=== PATIENT | female | born 1945 | race Caucasian/White ===

== ENCOUNTER → 2016-06-08 | Outpatient (CLI) | payer OTHER, BC ==
[~2016-06-08] MED LIST: APAP500; BENADRYL25 MG; CITRATE OF MAG296 ML PO; FLEXERIL PO; IBUPROFEN 400400 M1 PO; KEFLEX500 MG PO; PERCOCET 5-3251 EACH PO; PERCOCET 7.5-31 EACH PO; PHENERGAN 25 MG25 M1 PO; ULTRAM 50MG TAB50 MG PO; ZOFRAN ODT4 MG PO
== END ==
LOC: CAT 15:35
DX: M48.56XA Collapsed vertebra, not elsewhere classified, lumbar region, initial encounter for fracture (principal); I72.9 Aneurysm of unspecified site; M54.9 Dorsalgia, unspecified; I26.99 Other pulmonary embolism without acute cor pulmonale

== ENCOUNTER → 2016-06-10 | Outpatient (CLI) | payer OTHER, BC | LOC: ULTRA 07:33 | DX: M79.662 Pain in left lower leg (principal); M79.661 Pain in right lower leg; M79.89 Other specified soft tissue disorders ==

== ENCOUNTER → 2016-06-18 | Outpatient (CLI) | payer OTHER, BC | LOC: RAD 08:34 | DX: Z12.31 Encounter for screening mammogram for malignant neoplasm of breast (principal) ==

== ENCOUNTER → 2016-06-25 | Outpatient (CLI) | payer OTHER, BC | LOC: RAD 06-23 13:14 | DX: R92.0 Mammographic microcalcification found on diagnostic imaging of breast (principal); N63 Unspecified lump in breast; N60.09 Solitary cyst of unspecified breast ==

== ENCOUNTER → 2017-02-17 | Outpatient (CLI) | payer BC, OTHER | LOC: RAD 14:00 | DX: N63.20 Unspecified lump in the left breast, unspecified quadrant (principal); N63.10 Unspecified lump in the right breast, unspecified quadrant; R92.1 Mammographic calcification found on diagnostic imaging of breast ==

== ENCOUNTER → 2018-01-18 | Outpatient (CLI) | payer BC, OTHER | LOC: NUC 09:43 | DX: S22.000A Wedge compression fracture of unspecified thoracic vertebra, initial encounter for closed fracture (principal); N91.2 Amenorrhea, unspecified; I10 Essential (primary) hypertension; X58.XXXA Exposure to other specified factors, initial encounter; Y93.89 Activity, other specified; Y92.89 Other specified places as the place of occurrence of the external cause; Y99.8 Other external cause status; Z78.0 Asymptomatic menopausal state ==

== ENCOUNTER → 2018-03-01 | Outpatient (CLI) | payer BC, OTHER | LOC: RAD 08:45 | DX: Z12.31 Encounter for screening mammogram for malignant neoplasm of breast (principal) ==

== ENCOUNTER → 2018-03-04 | Outpatient (CLI) | payer BC, OTHER | LOC: ULTRA 08:07 | DX: N60.01 Solitary cyst of right breast (principal); N60.02 Solitary cyst of left breast ==

== ENCOUNTER 2018-03-31 09:29 | Inpatient (IN) | payer BC, OTHER ==
[~2018-03-31] VITALS: Ht 165.1 cm; Wt 99.7 kg
[2018-03-31 09:42] VITALS: BP 186/60
--- NOTE | 2018-03-31 09:51 | NUR ---
PATIENT TO XRAY
--- NOTE | 2018-03-31 10:50 | NUR ---
BACK FROM XRAY
[2018-03-31 11:22] LABS: ABSOLUTE NEUTROPHILS 6.9 thou/uL (1.4-8.2); BASOPHILS 0.8 % (0.0-2.0); EOSINOPHILS 2.3 % (0.0-3.0); HEMATOCRIT 43.4 % (37.0-47.0); HEMOGLOBIN 14.1 gm/dL (12.0-15.0); LYMPHOCYTES 10.8 % (24.0-44.0); MCH 28.4 pg (26.0-34.0); MCHC 32.5 g/dL (28.0-37.0); MCV 87.3 fL (80.0-100.0); MONOCYTES 5.1 % (1.0-8.0); PLATELET COUNT 188 thou/uL (150-400); RBC 4.97 mil/uL (4.20-5.00); RDW 13.9 % (10.5-14.5); WBC 8.5 thou/uL (4.0-11.0)
[2018-03-31 11:33] LABS: CALCIUM 8.9 mg/dL (8.5-10.1)
[2018-03-31 11:39] LABS: ALBUMIN 3.5 g/dL (3.4-5.0); TOTAL BILIRUBIN 0.5 mg/dL (<0.1-1.0); TOTAL PROTEIN 6.8 g/dL (6.4-8.2)
--- NOTE | 2018-03-31 11:45 | NUR ---
PATIENT PLACED ON BEDPAN, UNABLE TO GET SAMPLE, MISSED HAT
[2018-03-31 11:48] VITALS: BP 179/88
--- NOTE | 2018-03-31 14:09 | NUR ---
PT STILL AWAITING FLOOR BED, LUNCH ORDERED
--- NOTE | 2018-03-31 16:20 | NUR ---
GIVEN PT ROOM #431, SBAR FAXED
--- NOTE | 2018-03-31 16:39 | EKG ---
[address] [address] ELECTROCARDIOGRAM REPORT Name: LATOYARONTYLER Room #: 170-9 ADM IN M.R.#: [id number] Admission: 03/31/18 Attend Phys: Steven Fuentes MD Discharge: Date of : 45 Report #: [id number] THIS REPORT FOR: //name// [facility] ED Test Date: 2018-03-31 Test Time: 11:12:34 Pat Name: TYLER HANNA Department: Room: 170 Gender: F Employment Assistant: as : 1945 Requested By: Shawna Yang Order Number: [id number] MD: Frantz Holder Measurements Intervals [place] Rate: 49 P: 70 [place]: 174 QRS: 37 QRSD: 88 T: 38 QT: 457 QTc: 413 Interpretive Statements Sinus bradycardia Compared to ECG 02/22/2014 15:37:09 No significant changes Electronically Signed On 03-31-2018 16:39:26 PARI MUTUAL TICKET CHECKER by Frantz Holder [email or web address] <ELECTRONICALLY SIGNED> By: Frantz Holder MD 03/31/18 1639 1112 11 Frantz Holder MD /ERIKA
[2018-03-31 17:58] VITALS: BP 128/76
--- NOTE | 2018-03-31 18:45 | NUR ---
PT RECEIVED FROM THE ER AT 1815 PER CART ALERT AND IN NO ACUTE DISTRESS. PT TRANSFERRED TO HER BED AND REPOSITIONED FOR COMFORT. ADMITTING HISTORY OBTAINED FROM PT AND DTRS. PT NOT WANTING TO TAKE NARCOTIC MEDS SHE HAS HAD TROUBLE IN THE PAST W/ LOW BP. EATING DINNER AT PRESENT.
[2018-03-31 20:30] VITALS: BP 146/55
[2018-03-31 22:45] VITALS: BP 152/67
[2018-04-01] VITALS (8 sets, daily range): BP systolic 88–183; BP diastolic 53–78
--- NOTE | 2018-04-01 03:48 | NUR ---
Assumed care of pt at 1900. Pt complaints of pain in right hip. tester electronic scale notified and new orders noted. Pt requests antinausea medication to be taken with pain meds. tester electronic scale paiged. No response. Pt does not want to take narcotics because states her blood pressure drops. Surgeon called in pm. Ordered for consent to be obtained and signed, npo after midnight, and 2g ancef to be given in holding room prior to surgery. States there was a concern earlier in the day for cardiology clearance for pt prior surgery. Will pass in report to am nurse. Dr tester electronic scale just called back and order for antinausea medication submitted. Durán catheter placed. IVF started. Pt calls appropriately. Will continue to monitor.
--- NOTE | 2018-04-01 09:03 | NUR ---
RECEIVED PT REPORT APPROX 0700. A/O. C/O PAIN- TORADOL GIVEN ORDERED. NO SOA. NO NV. PT RESTING IN BED AT THIS TIME. PLANS FOR SURGERY TODAY. CARDIO SAW PT THIS AM. NO BP MEDS AT THIS TIME. PLANS FOR PT TO TRANSFER TO TELE POST OP. WILL CONT. TO MONITOR.
--- NOTE | 2018-04-01 09:58 | 2DMMODE ---
[facility] [address] [place] [address] 2 D/M-MODE ECHOCARDIOGRAM Name: LATOYARONTYLERAliza SUAREZ Room #: 431-P [facility] IN M.R.#: [id number] Admission: 03/31/18 Attend Phys: Steven Fuentes, Discharge: Date of : 45 Date of Service: 04/01/18 0958 Report #: [id number] THIS REPORT FOR: //name// APPROVED REPORT Study performed: 04/01/2018 09:14:33 EXAM: Comprehensive 2D, Doppler, and color-flow Echocardiogram Patient Location: Bedside Room #: 431 Status: routine BSA: 1.96 HR: 52 bpm BP: 183/59 mmHg Rhythm: Bradycardia Other Information Study Quality: Adequate Indications Bradycardia Hypertension/HDD 2D Dimensions RVDd: 31.97 mm IVSd: 10.32 (7-11mm) LVOT Diam: 20.27 (18-24mm) LVDd: 50.96 mm PWd: 10.15 (7-11mm) Ascending Ao: 27.92 (22-36mm) LVDs: 35.06 (25-40mm) Aortic Root: 27.62 mm IVC: 22.00 mm Volumes Left Atrial Volume (Systole) Single Plane 4CH: 65.34 mL Single Plane 2CH: 69.88 mL LA ESV Index: 40.00 mL/m2 Aortic Valve AoV Peak Bentley.: 1.59 m/s AO Peak Gr.: 10.10 mmHg LVOT Max P.57 mmHg LVOT Max V: 1.18 m/s REGINE Vmax: 2.40 cm2 Mitral Valve E/A Ratio: 1.0 MV Decel. Time: 158.49 ms [facility] [place] [address] [place] [address] 2 D/M-MODE ECHOCARDIOGRAM Name: LATOYARONTYLERAliza SUAREZ Room #: 431[facility] IN ..#: [id number] Admission: 03/31/18 Attend Phys: Steven Fuentes, Discharge: Date of : 45 Date of Service: 04/01/18 0958 Report #: [id number] MV E Max Bentley.: 1.14 m/s MV A Bentley.: 1.09 m/s MV PHT: 45.96 ms IVRT: 110.73 ms Pulmonary Valve PV Peak Bentley.: 1.10 m/s PV Peak Gr.: 4.85 mmHg Pulmonary Vein P Vein S: 0.52 m/s P Vein A: 0.37 m/s P Vein D: 0.22 m/s P Vein A Dur.: 147.6 msec P Vein S/D Ratio: 2.36 Tricuspid Valve TR Peak Bentley.: 3.49 m/s TR Peak Gr.: 48.70 mmHg PA Pressure: 59.00 mmHg Left Ventricle The left ventricle is normal size. There is normal LV segmental wall motion. There is normal left ventricular wall thickness. The left ventricular systolic function is normal. The left ventricular ejection fraction is within the normal range. LVEF is 55-60%. The left ventricular diastolic function is normal. Right Ventricle The right ventricle is normal size. The right ventricular systolic function is normal. Atria Left atrium is dilated. Right atrium is dilated. Aortic Valve The aortic valve is normal in structure. No aortic regurgitation is present. There is no aortic valvular stenosis. Mitral Valve The mitral valve is normal in structure. Mild mitral regurgitation. No evidence of mitral valve stenosis. Tricuspid Valve The tricuspid valve is normal in structure. There is mild tricuspid regurgitation. Estimated PAP 55 mmHg. There is moderate pulmonary [place] [address] 2 D/M-MODE ECHOCARDIOGRAM Name: TYLER HANNA DANIELA Room #: 431-P [facility] IN .R.#: [id number] Admission: 03/31/18 Attend Phys: Steven Fuentes, Discharge: Date of : 45 Date of Service: 04/01/18 0958 Report #: [id number] The pulmonary valve is normal in structure. Trace pulmonic regurgitation. Great Vessels The aortic root is normal in size. IVC is dilated and collapses >50% with inspiration. Pericardium There is no pericardial effusion. <Conclusion> The left ventricular systolic function is normal. There is normal LV segmental wall motion. LVEF is 55-60%. Both atria are mildly dilated. The aortic valve is normal in structure. No aortic regurgitation or stenosis The mitral valve is normal in structure. Mild mitral regurgitation. There is mild tricuspid regurgitation. Estimated pulmonary artery pressure of 55 mmHg. There is no pericardial effusion. <ELECTRONICALLY SIGNED> By: Derick Teran MD, FACC 04/01/1858 7 7 Derick Teran MD, FACC /INF
--- NOTE | 2018-04-01 13:41 | O ---
[facility] [place] [address] OPERATIVE REPORT Name: TYLER HANNA Room #: 431-P ADM IN M.R.#: [id number] Admission: 03/31/18 Attend Phys: Steven Fuentes MD Discharge: Date of : 45 Report #: [id number] THIS REPORT FOR: //name// CC: Steven Fuentes DATE OF SERVICE: 04/01/2018 PREOPERATIVE DIAGNOSES: Right femoral neck fracture; traumatic sprain right knee with hemarthrosis; nondisplaced fracture, right distal radius. POSTOPERATIVE DIAGNOSIS: Right femoral neck fracture; traumatic sprain right knee with hemarthrosis; nondisplaced fracture, right distal radius. PROCEDURE: Right proximal femoral hemiarthroplasty; aspiration of hemarthrosis, right knee; short arm cast application, right distal radius fracture. SURGEON: Branden Husain MD INDICATIONS: This active, independent 72-year-old female fell at home injuring the right hip and the right knee. X-rays and clinical exam confirm a femoral neck fracture, which is impacted with questionable stability. We have discussed treatment options including percutaneous pinning or hemiarthroplasty or total joint replacement. She and family have discussed these issues and prefer to go ahead with cemented hemiarthroplasty at this time. In addition, she has had a sprain of the left knee with tense joint effusion. X-rays reveal moderate degenerative change, but no clear evidence of fracture. There is some irregularity in the lateral tibial plateau which could be consistent with fracture; however, we have elected to treat this conservatively at this point. DESCRIPTION OF PROCEDURE: The patient was taken to the operating room where she was placed under general anesthesia. Prophylactic intravenous antibiotics were administered. The right knee was aspirated, removing about 100 mL of bloody fluid. There was no fat in then bloody effusion suggesting this may be more of a soft tissue sprain or strain rather than fracture. No other treatment for the knee at this time was applied. The patient was then turned to the left lateral decubitus position. The right hip, thigh and leg were meticulously prepped and draped. A slightly curving skin incision was made centered over the greater trochanter. This was carried through fascia exposing the posterior aspect of the hip joint. The short external rotators and capsule were taken down and tagged with several #1 Tevdek sutures. The femoral neck fracture was found to be impacted, but unstable. The fracture easily as we manipulated the hip. The femoral head was removed. The acetabulum measured at 49 mm in diameter. The neck was trimmed down to an appropriate level. The canal was opened with reamers and hand broaches. The Mercedes and Nephew system was utilized. A size [address] [address] OPERATIVE REPORT Name: LATOYARONTYLERlAiza SUAREZ Room #: 431-P [facility] IN M.R.#: [id number] Admission: 03/31/18 Attend Phys: Steven Fuentes MD Discharge: Date of : 45 Report #: [id number] seemed to fit most appropriately. The acetabulum was inspected and some bony debris was removed. No other abnormalities were identified. There appears to be good cartilage without significant degenerative change and I think a hemiarthroplasty for this patient seems reasonable. A trial reduction was performed and the hip seemed best suited for a 49 mm head size with a +0 mm neck length. This resulted in satisfactory alignment, range of motion, stability and leg length. The trial component was removed. The canal was thoroughly irrigated and dried. A cement restrictor was placed in the canal. Methyl methacrylate cement was mixed and injected into the canal. The Mercedes and Nephew size 13 Synergy cemented femoral stem was then inserted, positioning this in about 20 degrees of anteversion. Excess cement was removed around its margin. A 49 mm unipolar head with a +0 mm neck length sleeve was then inserted. This was gently tapped onto the Basilio taper and seated nicely. The hip was reduced and held in neutral position as the cement fully hardened. Alignment, range of motion, stability and leg length were once again assessed and felt to be satisfactory. The joint capsule and short external rotators were then repaired back to bone using the #1 Tevdek sutures passed through drill holes in the greater trochanter. This resulted in significant additional stability. A single Hemovac was left in the wound exiting through a separate stab incision. The fascia was then closed with multiple #1 Vicryl and 0 Monocryl sutures. The abundant adipose tissues and subcutaneous tissues were also closed with 0 Monocryl. The skin was closed with skin gerry. A sterile dressing was applied. At this point, the splint, which had been previously placed at the right distal radius fracture was removed. The skin was inspected and looked fine. New short arm thumb spica cast was applied. The patient was then awakened and returned to recovery room in good condition. <ELECTRONICALLY SIGNED> By: Branden Husain MD 04/01/18 1341 1236 1320 Branden Husain MD /nt
[2018-04-01 14:20] LABS: HEMATOCRIT 41.6 % (37.0-47.0); MCH 28.4 pg (26.0-34.0); MCHC 31.4 g/dL (28.0-37.0); MCV 90.5 fL (80.0-100.0); RBC 4.59 mil/uL (4.20-5.00); WBC 14.9 thou/uL (4.0-11.0)
--- NOTE | 2018-04-01 16:13 | NUR ---
PT ADMITTED RELATED TO HIP FX, DISTAL RADIUS FX, KNEE EFFISON, SHOULDER CON. CM REVIEWED CHART AND SPOKE WITH CARE TEAM. CM MET WITH PT AND FAMILY AT BEDSIDE THIS DAY. PT IS A&O X4. CM ROLE INTRODUCED. PT INDICATED SHE LIVES ALONE IN A SPLIT LEVEL HOUSE WITH ABOUT 6 STEPS TO ENTER AND 10 STEPS INSIDE. 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 PT INDICATED NO DME OR HH HX BUT THAT SHE HAS GONE TO OP THERAPY IN THE PAST. 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 PT INDICATED SHE PLANS TO GO TO HER DTR SHIRA'S HOUSE [place]ON [place] WHICH IS A [place]ANCH WITH 2 STEPS TO ENTER. PT INDICATED SHE WOULD PREFER NOT OT GO FOR A SHORT TERM POST ACUTE CARE STAY [place]ON [place] AND IF SHE DOES WOULD WANT TO BE ABLE TO WORK AT THE FACILITY. CM TO FOLLOW INDICATED WITH DC PLANNING.
--- NOTE | 2018-04-01 16:30 | NUR ---
PT ARRIVED 1430 POST-OP ORTHO SURGERY, DENIES PAIN, DRESSING TO RIGHT HIP INTACT WITH ICE PACK AND CMS, CAST APPLICATION TO RIGHT ARM CMS INTACT, SCD'S INPLACE, HIP PRECAUTIONS INFORCED. POST OP VS DOCUMENTED. NOTIFIED PHYISICIAN REGARDING LOW BP WITH ORDER FOR 1 LETER BOLUS. BP IMPROVED AND STOPPED BOLUS AFTER 200ML. HEMOVAC INTACT WITH MINIMAL DRAINAGE. FAMILY BEDSIDE ENCOURAGE PATIENT TO REST. FALL PRECAUTION IN PLACE. CALL LIGHT IN REACH. PT STATED THEY WILL SEE HER TOMORROW. PT IS WBAT PER DR DE LA PAZ'S ORDER.
[2018-04-02 00:05] VITALS: BP 154/53
[2018-04-02 04:59] VITALS: BP 184/88
[2018-04-02 05:40] LABS: HEMATOCRIT 34.6 % (37.0-47.0); HEMOGLOBIN 11.7 gm/dL (12.0-15.0); MCH 29.1 pg (26.0-34.0); MCHC 33.9 g/dL (28.0-37.0); MCV 85.8 fL (80.0-100.0); RBC 4.03 mil/uL (4.20-5.00); RDW 13.8 % (10.5-14.5); WBC 11.8 thou/uL (4.0-11.0)
[2018-04-02] MEDS ORDERED: DIOVAN320 MG PO (05:43)
[2018-04-02] MEDS ORDERED: ASPIR 8181 MG PO (05:44)
[2018-04-02] MEDS ORDERED: BYSTOLIC10 MG PO (05:44)
[2018-04-02] MEDS ORDERED: IBUPROFEN 600600 M1 PO (05:45)
[2018-04-02 07:35] VITALS: BP 158/53
--- NOTE | 2018-04-02 07:53 | NUR ---
PT. ABLE TO REST DURING THE NIGHT; NO C/O PAIN; EDUCATED ABOUT HIP PRECAUTIONS MOVEMENT; HIGH BP DURING THE MORNING; [employer] DEAN CONTACTED; ORDERS RECEIVED; ASSESSMENT CHARGED. D/C AROUND 7AM DRAIN; 4X4 AND TRANSPARENT DRESING APPLIED; 50 CC END DRAINED VOLUME. PASSED ON REPORT.
--- NOTE | 2018-04-02 10:52 | EKG ---
[address] [place] [address] ELECTROCARDIOGRAM REPORT Name: JACQUESTYLERAliza SUAREZ Room #: 203-P ADM IN M.R.#: [id number] Admission: 03/31/18 Attend Phys: Steven Fuentes MD Discharge: Date of : 45 Report #: [id number] THIS REPORT FOR: //name// [facility] Test Date: 2018-04-02 Test Time: 07:32:43 Pat Name: TYLER HANNA Department: Room: 203 P Gender: F Top And Seat Cover Fitter: lakshmi : 1945 Requested By: Esme Navarrete Order Number: [id number] MD: Derick Teran Measurements Intervals [place] Rate: 58 P: 48 [place]: 172 QRS: 39 QRSD: 90 T: 47 QT: 466 QTc: 458 Interpretive Statements Sinus bradycardia Otherwise no significant abnormality Compared to ECG 03/31/2018 11:12:34 No significant change was found Electronically Signed On 04-02-2018 10:52:08 MACHINE STONECUTTER by Derick Teran [email or web address] <ELECTRONICALLY SIGNED> By: Derick Teran MD, [facility] 04/02/18 1052 1 1 Derick Teran MD, [facility] /EPI
[2018-04-02 11:25] VITALS: BP 142/63
[2018-04-02 15:20] VITALS: BP 156/62
--- NOTE | 2018-04-02 17:28 | NUR ---
ASSUMED CARE OF PT AT SHIFT CHANGE. ASSESSMENTS CHARTED. MEDS GIVEN PER MAY. PT AOX4, C/O PAIN IN HIP AREA, COMPLETE RELIEF OBTAINED WITH PO PAIN MEDS. DENIES CHEST PAIN. O2 SATS WNL ON 4L O2. NO S/SX OF CARDIAC OR RESP DISTRESS NOTED. PT SINUS AMANDA ON MONITOR. PT GOT UP WITH PHYSICAL THERAPY TODAY AND TOLERATED WELL. FAMILY VISITED WITH PT TODAY. DRESSING ON HIP INTACT, MINIMAL DRIED DRAINAGE NOTED. WILL CONTINUE TO MONITOR AND FOLLOW POC.
[2018-04-02 20:00] VITALS: BP 152/55; BP 187/81
[2018-04-03 04:30] VITALS: BP 137/75
[2018-04-03 05:51] LABS: HEMATOCRIT 32.5 % (37.0-47.0); MCH 29.3 pg (26.0-34.0); MCHC 33.9 g/dL (28.0-37.0); MCV 86.3 fL (80.0-100.0); RBC 3.77 mil/uL (4.20-5.00); RDW 14.1 % (10.5-14.5); WBC 9.5 thou/uL (4.0-11.0)
--- NOTE | 2018-04-03 05:58 | NUR ---
PT. ABLE TO REST DURING THE NIGHT; CHILDREN STAY DURING THE NIGHT; NO C/O PAIN DURING THE SHIFT; PLAN TO D/C [place] AT 6AM; REFUSED TURNING DURING THE NIGHT; O2 DECREASED TO 1L; O2SAT ON 94%; SBP ON THE 150'S; FOLLOWING POC; ASSESSMENT CHARGED
[2018-04-03 07:15] VITALS: BP 183/49
[2018-04-03 11:20] VITALS: BP 132/68
[2018-04-03 15:10] VITALS: BP 141/54
--- NOTE | 2018-04-03 15:53 | NUR ---
ASSUMED CARE OF PT AT SHIFT CHANGE. ASSESSMENTS CHARTED. MEDS GIVEN PER MAY. PT AOX4, VSS, BP ELEVATED EARLY IN SHIFT, CARDIOLOGY AWARE. PT HAD NAUSEA AND VOMITING THIS AM, ZOFRAN ADMINISTERED, RELIEF OBTAINED. PT C/O PAIN IN HIP, MANAGED WITH PO PAIN MEDS. DENIES CHEST PAIN, O2 SATS WNL ON 2-3L O2. NO S/SX OF CARDIAC OR RESP DISTRESS NOTED. PT GOT UP WITH PHYSICAL THERAPY TODAY, TOLERATED WELL. FAMILY VISITED WITH PT THROUGHOUT SHIFT. WILL CONTINUE TO MONITOR AND FOLLOW POC.
[2018-04-03 20:12] VITALS: BP 124/41
[2018-04-04 00:18] VITALS: BP 127/49
--- NOTE | 2018-04-04 03:33 | NUR ---
ASSESSMENT DOCUMENTED.PT BEEN RESTING IN NO ACUTE DISTRESS.A/OX4.VSS.RIGHT HIP DRESSING INTACT.EVELYN VAC IN PLACE.RIGHT ARM CAST IN PLACE.NO C/O PAIN THIS SHIFT..UP WITH TWO STAFF ASSIST.WILL CONT TO MONITOR PER POC.
[2018-04-04 06:04] VITALS: BP 123/40
[2018-04-04 07:20] VITALS: BP 117/46
[2018-04-04 12:20] VITALS: BP 121/44
--- NOTE | 2018-04-04 15:40 | NUR ---
PATIENT TRANSFERRED FROM [facility], REPORT RECEIVED FROM AARTI WOMACK/DEEPTHI. PATIENT ALERT AND ORIENTED X 4. PATIENT UP WITH ASSIST X 1-2 WIT GAIT BELT AND WALKER. PATIENT C/O PAIN WITH RIGHT HIP AREA, RECEIVED MOTRIN 600 MG AT 1040, PRIOR TO COMING TO [facility]. PATIENT HAS O2 AT 2 LITERS/NC. PATIENT HAS LEFT FOREARM IV IN PLACE. PATIENT HAS RIGHT HIP FRACTURE, WITH HIP PRECAUTIONS, EVELYN DRESSING IN PLACE/C/D/I. PATIENT HAS RIGHT RADIAL CAST IN PLACE. WILL CONTINUE TO MONITOR.
[2018-04-04 21:13] VITALS: BP 131/51
--- NOTE | 2018-04-05 05:19 | NUR ---
Pt A/OX4,up with AX1 RW/GB.C/o pain to Right hip/knee with movement but no pain when still LOP 6/10 medicated with Ibuprofen with relief reported. Right hip with EVELYN dsg C/D/I,cast in place on right arm CMS intact. Voiding without any problems. BS active,passing flatus did have another small formed BM at HS declined taking a suppository like she had requested earlier. Pt chose to use a pillow between her legs instead of abductor wedge.Resting quietly with eyes closed no distress noted. Fall precautions implemented.
[2018-04-05 07:00] VITALS: BP 142/62
[2018-04-05] MEDS ORDERED: XARELTO10 MG PO (07:56)
[2018-04-05 08:15] VITALS: BP 136/57
[2018-04-05 10:31] VITALS: BP 142/62
--- NOTE | 2018-04-05 10:32 | NUR ---
DISCHARGE NOTE: MARRY reviewed chart and spoke with nursing and attending physician. Pt was transferred to [facility] from and is medically stable for discharge home today with HH services. MARRY discussed case with [facility] liaison, who has delivered roller walker with platform to pt's room. Awaiting signed script at this time. MARRY met with pt at bedside to discuss discharge plan. Pt is aware and agreeable with discharge plan. Options provided for HH agencies. Pt requested list to reivew. SW provided pt with list of HH agencies. Pt requests referral to be sent to [facility]. Pt's back up choice is [facility]. MARRY confirmed pt's home address and phone number: [address] [place] [address] . Pt will be staying with her dtr, Jennifer at time of discharge. Pt's PCP is Dr. Fuentes. MARRY notified intake at [facility]. Waiting to make sure they accept pt's insurance. Contact info for [facility] placed in pt's discharge summary. Pt's family will provide transportation home later today. MARRY is following to finalize discharge.
--- NOTE | 2018-04-05 12:26 | NUR ---
PATIENT CARE WAS ASSUMED AT 0715.PATIENT IS ALERT AND ORIENTED X4.TRANSFERS X1 ASSIST WITH WALKER, AND GAIT BELT.PATIENT HAS PAIN 5/10 NWILL GIVEN PAIN MEDS WITH MORNING MED PASS.HEART IS LOW PATIENT STATED THAT SHE IS AWARE AND HER DOCTOR IS AWARE WILL CONTINUE TO MONITOR.IV IS INTACT AND SALINE LOCKED.CALL LIGHT, PHONE, AND PERSONAL BELONGINGS ARE WITHIN REACH.
--- NOTE | 2018-04-05 17:42 | NUR ---
PATIENT WAS DISCAHRGED TO GO HOME WITH HOME HEALTH.PATIENT WAS GIVEN D/C PAPERWORK.EDUCATION ON MEDICATIONS.PT HAS ALL PERSONAL BELONGINGS.FAMILY WILL TAKE PATIENT HOME IN CAR.PT WAS TAKEN OUT VIA W/C BY TRANSPORTATION.IV WAS TAKEN OUT, GAUZE INTACT WITH TAPE.
== END 2018-04-05 17:49 | disposition home health service (06) | DRG 470 ==
LOC: ER 09:29 → EROBS 11:18 → 4E 11:18 → SICU 11:18 → 4E 17:56 → 4W 04-01 15:12 → 2N 04-01 18:40 → SICU 04-04 11:22 → ENTRNSPT 04-05 17:01 → SICU 04-05 17:49
PROVIDERS: Orthopaedic Surgery; Physician Assistant; ADMIT Family Medicine
DX: S72.011A Unspecified intracapsular fracture of right femur, initial encounter for closed fracture (principal); S52.571A Other intraarticular fracture of lower end of right radius, initial encounter for closed fracture; M25.061 Hemarthrosis, right knee; M25.461 Effusion, right knee; S40.011A Contusion of right shoulder, initial encounter; S83.91XA Sprain of unspecified site of right knee, initial encounter; I10 Essential (primary) hypertension; I95.2 Hypotension due to drugs; T40.605A Adverse effect of unspecified narcotics, initial encounter; K21.9 Gastro-esophageal reflux disease without esophagitis; R00.1 Bradycardia, unspecified; K59.00 Constipation, unspecified; W10.8XXA Fall (on) (from) other stairs and steps, initial encounter; Y93.01 Activity, walking, marching and hiking; Y92.098 Other place in other non-institutional residence as the place of occurrence of the external cause; Y99.8 Other external cause status; Z90.49 Acquired absence of other specified parts of digestive tract; Z88.1 Allergy status to other antibiotic agents
CPT/HCPCS: 10081; 10084; 10797; 15002; 50010; 50101; 50382; 50414; 51057; 51130; 51225; 51412; 53000; 53369; 56521; 56525; 56527; 56530; 62110; 62900; 65131; 70005

== ENCOUNTER → 2018-06-16 | Outpatient (CLI) | payer BC, OTHER ==
[~2018-06-16] MED LIST changes: +ASPIR 8181 MG PO; +BYSTOLIC10 MG PO; +DIOVAN320 MG PO; +IBUPROFEN 600600 M1 PO; +XARELTO10 MG PO
== END ==
LOC: ULTRA 12:34
DX: R60.0 Localized edema (principal); Z88.1 Allergy status to other antibiotic agents

== ENCOUNTER → 2018-11-15 | Outpatient (CLI) | payer BC, OTHER | LOC: ULTRA 01:29 → RAD 01:29 | DX: N63.20 Unspecified lump in the left breast, unspecified quadrant (principal) ==

== ENCOUNTER → 2019-08-14 | Outpatient (CLI) | payer BC, OTHER | LOC: ULTRA 12:23 → BC 12:23 | PROVIDERS: ATTEND Family Medicine | DX: N60.02 Solitary cyst of left breast (principal); R92.2 Inconclusive mammogram; R92.1 Mammographic calcification found on diagnostic imaging of breast ==

== ENCOUNTER 2020-04-14 18:49 | Inpatient (IN) | payer BC, OTHER ==
[~2020-04-14] VITALS: Ht 165.1 cm; Wt 91.6 kg
[2020-04-14 18:53] VITALS: BP 172/50
[2020-04-14] MEDS ORDERED: AVAPRO75 MG PO (18:58)
[2020-04-14 19:36] LABS: URINE BILIRUBIN NEGATIVE (Negative); URINE BLOOD 1+ (Negative); URINE CLARITY CLEAR; URINE COLOR YELLOW; URINE GLUCOSE-RANDOM* NEGATIVE (Negative); URINE KETONES NEGATIVE (Negative); URINE LEUKOCYTES-REFLEX NEGATIVE (Negative); URINE NITRITE-REFLEX NEGATIVE (Negative); URINE PROTEIN (DIPSTICK) 1+ (Negative); URINE SPECIFIC GRAVITY 1.015 (1.005-1.035); URINE UROBILINOGEN 0.2 E.U./dl (0.2-1.0)
[2020-04-14 19:53] LABS: SQUAMOUS >10 Many /LPF (0-3)
[2020-04-14 19:54] LABS: RENAL EPITHELIAL CELLS 0-3 Few /LPF (None Seen)
[2020-04-14 19:55] LABS: BACTERIA-REFLEX None Seen /HPF (None Seen); CASTS None Seen /LPF (None Seen); CRYSTALS None Seen /LPF (None Seen); URINE RBC 0-2 Rare /HPF (0-2); URINE WBC-REFLEX 0-5 Rare /HPF (0-5)
[2020-04-14 20:13] LABS: ABSOLUTE NEUTROPHILS 3.5 thou/uL (1.4-8.2); BASOPHILS 0.7 % (0.0-2.0); EOSINOPHILS 0.4 % (0.0-3.0); HEMATOCRIT 36.9 % (37.0-47.0); HEMOGLOBIN 12.3 gm/dL (12.0-15.0); LYMPHOCYTES 17.4 % (24.0-44.0); MCH 28.1 pg (26.0-34.0); MCHC 33.2 g/dL (28.0-37.0); MCV 84.5 fL (80.0-100.0); MONOCYTES 9.3 % (1.0-8.0); PLATELET COUNT 159 thou/uL (150-400); POLYS 72.2 % (36.0-66.0); RBC 4.36 mil/uL (4.20-5.00); RDW 14.8 % (10.5-14.5); WBC 4.9 thou/uL (4.0-11.0)
[2020-04-14 20:24] LABS: CREATININE 0.9 mg/dL (0.6-1.0); POTASSIUM 4.4 mmol/L (3.5-5.1)
[2020-04-14 20:30] LABS: ALBUMIN 3.4 g/dL (3.4-5.0); TOTAL BILIRUBIN 0.5 mg/dL (0.2-1.0); TOTAL PROTEIN 6.5 g/dL (6.4-8.2)
[2020-04-14 21:23] VITALS: BP 155/71
[2020-04-14 21:32] VITALS: BP 159/52
[2020-04-14 21:50] VITALS: BP 150/53
--- NOTE | 2020-04-14 23:25 | NUR ---
PT ADMITTED FROM ER IN STABLE CONDITIONTO RM 363. VSS AFEBRILE. RESPIRATIONS REGULAR AND UNLABORED ON RA. LUNGS SOUND DIMINISHED. NONPRODUCTIVE COUGH NOTED. NO C/O PAIN. NO S/S DISTRESS. INSTRUCTED PT ON FALL PRECAUTIONS DUE TO SCDS. SHE DOES AMBULATE TO BR WITH STEADY GAIT. BED ALARM ON AND IS LOCKED.
[2020-04-15 00:27] VITALS: BP 149/68
[2020-04-15 04:15] VITALS: BP 13/67
--- NOTE | 2020-04-15 06:09 | NUR ---
PT VSS AFEBRILE. NO C/O PAIN. NO S/S DISTRESS. SATS WNL ON RA.
[2020-04-15 07:43] VITALS: BP 195/64
--- NOTE | 2020-04-15 07:45 | EKG ---
[address] [place] [address] ELECTROCARDIOGRAM REPORT Name: JACQUESTYLERAliza SUAREZ Room #: 363-P ADM IN M.R.#: [id number] Admission: 04/14/20 Attend Phys: Steven Fuentes MD Discharge: Date of : 45 Report #: [id number] [facility] [place] ED Test Date: 2020-04-14 Test Time: 20:02:14 Pat Name: TYLER HANNA Department: Room: 363 Gender: F Business English Instructor: [email or web address] : 1945 Requested By: nEedelia Lewis Order Number: [id number] MD: Chaim Juarez Measurements Intervals [place] Rate: 46 P: 45 DC: 188 QRS: 16 QRSD: 93 T: 33 QT: 473 QTc: 414 Interpretive Statements Sinus bradycardia Probable left atrial enlargement Compared to ECG 04/02/2018 07:32:43 No significant changes Electronically Signed On 04-15-2020 7:45:33 FINANCIAL MANAGEMENT by Chaim Juarez [email or web address] <ELECTRONICALLY SIGNED> By: Chaim Juarez MD, [facility] 04/15/20 0745 01 01 Chaim Juarez MD, FACC /EPI
[2020-04-15 12:09] VITALS: BP 171/59
--- NOTE | 2020-04-15 15:55 | NUR ---
INITIAL ASSESSMENT: Received consult. SW reviewed chart and spoke with nursing and attending physician. Pt was admitted from home due to pneumonia. Pt placed in Enhanced Isolation due to COVID-19. Pt is afebrile and not requiring O2. Pt is on IV abx and IV steroids. Pt has started Remdesivir and Ivermectin. SW spoke with pt via phone. Introduced role of SW. Pt is alert/orientated x 4. Pt reports she lives at home alone. Split level home. 7 steps inside the home. Prior to admission, pt was independent with ADLs. No use of DME. Pt has a walker to use if needed. Pt had a hip fracture in 2019 and stayed with her dtr following hosptialization and had HH services through [facility]. Pt's PCP is Dr. Fuentes. Pt's goal is to return home when medically stable. SW is following to assist as needed with discharge planning.
[2020-04-15 16:30] VITALS: BP 165/62
--- NOTE | 2020-04-15 19:36 | NUR ---
RN ASSUMED PT'S CARE AT 0700AM, PT IS A&OX3, PT STARTS IV ABX AND TREAT COVID MEDICATIONS, PT IS ON ROOM AIR ,PT'S VS AND O2SAT ARE STABLE, PT GETS UP TO CHAIR BY HER SELF, BUT PT STILL HAS COUGHING AND DAIRRHEA.PT IS ON COVID ISOLATION.
[2020-04-15 20:16] VITALS: BP 137/92
--- NOTE | 2020-04-15 23:46 | NUR ---
PT A&OX4 .VSS AFEBRILE. NONPRODUCTIVE COUGH NOTED. UNLABORED ON RA. DIMINISHED AT BASES. NO S/S DISTRESS. IVF'S INFUSING WITHOUT DIFFICULTY LEFT FA.
[2020-04-16 04:52] VITALS: BP 182/74
[2020-04-16 05:51] LABS: MCHC 33.8 g/dL (28.0-37.0)
[2020-04-16 05:52] LABS: HEMATOCRIT 33.9 % (37.0-47.0); HEMOGLOBIN 11.5 gm/dL (12.0-15.0); MCH 28.7 pg (26.0-34.0); MCV 85.1 fL (80.0-100.0); RBC 3.98 mil/uL (4.20-5.00); RDW 14.9 % (10.5-14.5)
[2020-04-16 05:54] LABS: WBC 1.2 thou/uL (4.0-11.0)
[2020-04-16 06:03] LABS: ALBUMIN 2.9 g/dL (3.4-5.0); CALCIUM 7.6 mg/dL (8.5-10.1); CREATININE 0.8 mg/dL (0.6-1.0); DIRECT BILIRUBIN 0.1 mg/dL (<0.1-0.2); PHOSPHORUS 2.3 mg/dL (2.5-4.9); POTASSIUM 4.3 mmol/L (3.5-5.1); TOTAL BILIRUBIN 0.4 mg/dL (0.2-1.0)
--- NOTE | 2020-04-16 07:34 | NUR ---
NOTIFIED DR BROWN PT C/O SINUS SANTIAGO. TYLENOL GIVE ORDERED. REPORTED BP. NORVASC GIVEN ORDERED. NOTIFIED DR OF WBC 1.2. NO NEW ORDERS FOR NOW .
[2020-04-16 07:46] VITALS: BP 151/58
--- NOTE | 2020-04-16 13:20 | NUR ---
SW reviewed chart and spoke with nursing. Pt remains in Enhanced Isolation due to COVID. Pt is afebrile and not requiring O2. Pt is on IV abx and IV steroids. Pt is completing courses of Remdesivir and Ivermectin. Pt is ambulating in her room independently. Plan is for pt to discharge home when medically stable. MARRY is following to assist as needed with discharge planning.
[2020-04-16 15:49] VITALS: BP 145/62
--- NOTE | 2020-04-16 18:00 | NUR ---
PT PROGRESSING TOWARDS DISCHARGE SEEN BY ONLY COMPLAINT BY PT TODAY IS FOOD TASTING BAD AND THE IV GOING OFF. RN SAW THAT PT HAD 3 ABX TO ADMINISTER NEAR CLOSE TIME SO RN TOOK THE PROBLEMATIC L HAND ONE AND PLACED TWO AT THE R FOREARM NO PROBLEMS WITH BOTH IVs. PT VERBALIZES SATISFACTION WITH CARE AND RN PROMOTED COMFORT FOR THE PT. PT APPEARED HAPPY AT THE END OF THE SHIFT. RN SIGNING OFF NOW
[2020-04-16 20:26] VITALS: BP 168/63
--- NOTE | 2020-04-16 22:52 | NUR ---
PT VERY TALKATIVE AND SMILNG. SITTING UP IN LOUNGE CHAIR. IVF INTACT. LUNGS DIMINISHED. PT PROVIDED HS SNACK.
[2020-04-17 05:14] VITALS: BP 173/53
[2020-04-17 06:07] LABS: ALBUMIN 2.9 g/dL (3.4-5.0); ANION GAP 10 mmol/L (7-16); BUN 9 mg/dL (7-18); CALCIUM 7.6 mg/dL (8.5-10.1); CHLORIDE 101 mmol/L (98-107); CO2 23 mmol/L (21-32); CREATININE 0.8 mg/dL (0.6-1.0); DIRECT BILIRUBIN < 0.1 mg/dL (<0.1-0.2); GLUCOSE 181 mg/dL (74-106); PHOSPHORUS 2.2 mg/dL (2.6-4.7); POTASSIUM 3.7 mmol/L (3.5-5.1); SGOT 25 U/L (15-37); SGPT 28 U/L (14-59); SODIUM 134 mmol/L (136-145); TOTAL BILIRUBIN 0.2 mg/dL (0.2-1.0); TOTAL PROTEIN 5.9 g/dL (6.4-8.2)
[2020-04-17 06:09] LABS: HEMATOCRIT 34.2 % (37.0-47.0); HEMOGLOBIN 11.2 gm/dL (12.0-15.0); MCH 28.3 pg (26.0-34.0); MCHC 32.9 g/dL (28.0-37.0); MCV 86.1 fL (80.0-100.0); RBC 3.97 mil/uL (4.20-5.00); RDW 14.9 % (10.5-14.5); WBC 3.8 thou/uL (4.0-11.0)
[2020-04-17 07:55] VITALS: BP 178/64
--- NOTE | 2020-04-17 14:18 | NUR ---
MARRY reviewed chart and spoke with nursing. Pt remains in Enhanced Isolation due to COVID. Pt is afebrile and not requiring O2. Pt is on IV abx and IV steroids. Pt is completing course of Remdesivir. Discharge home is anticipated for tomorrow. MARRY spoke with pt via phone to provide update and discuss discharge plan. Pt verbalized understanding and is agreeable with discharge plan. Pt's family will be able to provide transportation home when medically stable. MARRY is following to assist as needed with discharge planning.
[2020-04-17 15:31] VITALS: BP 168/76
--- NOTE | 2020-04-17 18:36 | NUR ---
ASSUMED PATIENT CARE AT 0700. A/O X4. RA. UP AD MIL[place]. PROGRESSING TOWARDS POC GOALS.
[2020-04-17 19:22] VITALS: BP 180/58
[2020-04-17 20:46] VITALS: BP 120/70
--- NOTE | 2020-04-17 22:04 | NUR ---
PT SITTING UP IN CHAIR. PT DISCUSSING HER FRUSTRATIONS WITH HER DAUGHTERS CHOICE OF TYRONEPrakash. PTS SBP WAS 192. NURSE AND PT CHANGED CONVERSATION WAITED A AN HOUR AND MANUAL BP 120/70. PT PLANS ON HER DC TOMORROW. LUNGS DIMINISHED.
[2020-04-18 04:07] LABS: ALBUMIN 2.9 g/dL (3.4-5.0); ANION GAP 8 mmol/L (7-16); BUN 11 mg/dL (7-18); CALCIUM 7.6 mg/dL (8.5-10.1); CHLORIDE 100 mmol/L (98-107); CO2 25 mmol/L (21-32); CREATININE 0.8 mg/dL (0.6-1.0); DIRECT BILIRUBIN < 0.1 mg/dL (<0.1-0.2); GLUCOSE 217 mg/dL (74-106); POTASSIUM 4.2 mmol/L (3.5-5.1); SGOT 30 U/L (15-37); SGPT 36 U/L (30-65); SODIUM 133 mmol/L (136-145); TOTAL BILIRUBIN 0.3 mg/dL (0.2-1.0); TOTAL PROTEIN 5.5 g/dL (6.4-8.2)
[2020-04-18 05:37] VITALS: BP 150/90
[2020-04-18] MEDS ORDERED: CEFDINIR300 MG PO (06:24)
[2020-04-18] MEDS ORDERED: PREDNISONE 5 MG5 M1 PO (06:25)
[2020-04-18] MEDS ORDERED: PROVENTIL HFA6.7 G1 INH (06:25)
[2020-04-18 08:20] VITALS: BP 180/85
--- NOTE | 2020-04-18 11:44 | NUR ---
DISCHARGE NOTE: MARRY reviewed chart and spoke with nursing. Pt remains in Enhanced Isolation due to COVID. Pt is medically stable to discharge home today. No discharge needs identified. SW spoke with pt via phone to discuss discharge plan. Pt states she will be discharging home around 1700 this evening after her IV meds. Pt's family to provide transportation home. Pt denies having any discharge needs. MARRY received call from Telma at [facility] ([phone]) requesting update on pt's discharge. MARRY spoke with Telma to provide update and notify of discharge plan. Reviewed discharge med list with Telma, per her request. No SW needs identified at this time, but is available to assist should needs arise.
[2020-04-18 13:11] VITALS: BP 150/90
--- NOTE | 2020-04-18 17:16 | NUR ---
ASSUMED PATIENT CARE AT 0700. A/O X4. NO DISDRESS NOTED. DC TO HOME NOW.
== END 2020-04-18 17:24 | disposition home or self-care (01) | DRG 177 ==
LOC: ER 18:49 → 3W 21:07 → EROBS 21:07 → 3W 21:40
PROVIDERS: Physician Assistant; Specialist; ADMIT Family Medicine; ATTEND Family Medicine
PROC: XW033E5 Introduction of Remdesivir Anti-infective into Peripheral Vein, Percutaneous Approach, New Technology Group 5 (ICD-10-PCS; principal; 2020-04-16)
DX: U07.1 COVID-19 (principal); J12.82 Pneumonia due to coronavirus disease 2019; E87.1 Hypo-osmolality and hyponatremia; N17.9 Acute kidney failure, unspecified; I10 Essential (primary) hypertension; D72.819 Decreased white blood cell count, unspecified; Z90.49 Acquired absence of other specified parts of digestive tract; Z88.6 Allergy status to analgesic agent; Z88.1 Allergy status to other antibiotic agents; Z87.891 Personal history of nicotine dependence; Z79.899 Other long term (current) drug therapy
CPT/HCPCS: 10080; 10879